=== PATIENT | female | born 1985 | race Caucasian/White ===

== ENCOUNTER 2021-05-28 12:47 | Inpatient (IN) | payer OTHER ==
[2021-05-28 15:13] VITALS: BMI 33.3
[2021-05-28] MEDS ORDERED: IBUPROFEN 400 MG TABLET (FP) PO PRN (17:01)
[2021-05-28] MEDS ORDERED: ACETAMINOPHEN 325 MG TABLET (FP) PO PRN (17:01)
[2021-05-28] MEDS ORDERED: MAG HYDROX/AL HYDROX/SIMETH 30 ML UNIT-DOSE CUP PO PRN (17:01)
[2021-05-28] MEDS ORDERED: MENTHOL/PHENOL 1 EACH UD MM PRN (17:01)
[2021-05-28] MEDS ORDERED: MAGNESIUM CITRATE 300 ML BOTTLE PO PRN (17:01)
[2021-05-28] MEDS ORDERED: guaiFENesin 200 MG/10 ML 10 ML UNIT-DOSE CUPS PO PRN (17:01)
[2021-05-28] MEDS ORDERED: MAGNESIUM HYDROX 2400MG/30ML ORAL SUSPENSION 30 ML CUP PO PRN (17:01)
[2021-05-28] MEDS ORDERED: LOPERAMIDE HCL 2 MG CAPSULE PO PRN (17:01)
[2021-05-28] MEDS ORDERED: P-EPHED 60MG/TRIPROLIDI 2.5MG TABLET PO PRN (17:01)
[2021-05-28] MEDS: THIAMINE HCL 100 MG TABLET (FP) PO SCH (21:47)
[2021-05-28] MEDS: MELATONIN 5 MG TABLETS PO SCH (21:47)
[2021-05-28] MEDS: hydrOXYzine PAMOATE 25 MG CAPSULE (FP) PO PRN (21:48)
[2021-05-28] MEDS: SENNOSIDES 8.6MG TABLET (FP) PO SCH (21:49)
[2021-05-28] MEDS ORDERED: LITHIUM CARBONATE 300 MG CAPSULE PO ONE (22:00)
[2021-05-29] MEDS ORDERED: INSULIN (NOVOLOG) ASPART 100 UNITS/ML 10ML VIAL ONE (07:53)
[2021-05-29] MEDS ORDERED: PT OWN MED DRAWER 7, Y5N ONE ×3 (07:54→20:40)
[2021-05-29] MEDS ORDERED: methaDONE HCL 40 MG DISPERSABLE TABLET PO ONE (10:00)
[2021-05-29] MEDS: ONDANSETRON *ODT* 4 MG TABLET SL PRN (10:49)
[2021-05-29] MEDS: PRENATAL VITAMINS W/ FOLIC ACID TABLET (FP) PO SCH (12:06)
[2021-05-29] MEDS ORDERED: LITHIUM CARBONATE 150 MG CAPSULE PO SCH ×2 (14:00)
[2021-05-29] MEDS: GABAPENTIN 300 MG CAPSULE PO SCH ×2 (14:03→21:26)
[2021-05-29 16:50] LABS: HEMATOCRIT 35.8 % (32.4-45.2); HEMOGLOBIN 11.5 GM/dL (10.7-15.3); MCH 25.3 pg (25.7-33.7); MCHC 32.2 g/dl (32.0-36.0); MEAN CELL VOLUME 78.6 fl (80-96); MEAN PLT VOLUME 9.8 fl (7.5-11.1); PLATELET COUNT 314 10^3/uL (134-434); RBC 4.55 M/mm3 (3.60-5.2); RDW 16.2 % (11.6-15.6); WHITE BLOOD COUNT 12.2 K/mm3 (4.0-10.0)
[2021-05-29 16:51] LABS: CALCIUM 8.5 mg/dL (8.5-10.1)
[2021-05-29 16:52] LABS: ALBUMIN 3.5 g/dl (3.4-5.0); BLOOD UREA NITROGEN 16.2 mg/dL (7-18)
[2021-05-29 16:55] LABS: CREATININE 0.7 mg/dL (0.55-1.3)
[2021-05-29 16:57] LABS: BILIRUBIN,TOTAL 0.5 mg/dL (0.2-1); TOT PROT 7.4 g/dl (6.4-8.2)
[2021-05-29] MEDS: THIAMINE HCL 100 MG TABLET (FP) PO SCH (21:26)
[2021-05-29] MEDS: SENNOSIDES 8.6MG TABLET (FP) PO SCH (21:26)
[2021-05-29] MEDS: LITHIUM CARBONATE 300 MG CAPSULE PO SCH (21:26)
[2021-05-29] MEDS: MELATONIN 5 MG TABLETS PO SCH (21:26)
[2021-05-30] MEDS: methaDONE HCL 40 MG DISPERSABLE TABLET PO SCH (06:19)
[2021-05-30] MEDS: LITHIUM CARBONATE 300 MG CAPSULE PO SCH ×3 (06:19→21:28)
[2021-05-30] MEDS: GABAPENTIN 300 MG CAPSULE PO SCH ×3 (06:21→21:28)
[2021-05-30] MEDS: PRENATAL VITAMINS W/ FOLIC ACID TABLET (FP) PO SCH (10:28)
[2021-05-30] MEDS ORDERED: PT OWN MED DRAWER 7, Y5N ONE ×2 (13:55→20:17)
[2021-05-30] MEDS ORDERED: NICOTINE POLACRILEX 2 MG GUM BUC PRN (19:24)
[2021-05-30] MEDS: NICOTINE 10 MG CARTRIDGE (INHALER) IH SCH (20:05)
[2021-05-30] MEDS: THIAMINE HCL 100 MG TABLET (FP) PO SCH (21:27)
[2021-05-30] MEDS: SENNOSIDES 8.6MG TABLET (FP) PO SCH (21:27)
[2021-05-30] MEDS: MELATONIN 5 MG TABLETS PO SCH (21:28)
[2021-05-30 22:59] LABS: EPI CELLS >36 /uL (0-25.1); HYALINE CASTS 2 /uL (0-3.1); PH,URINE 7.5 (5.0-8.0); URINE APPEARANCE TURBID; URINE BACTERIA 1868 /uL (0-1359); URINE BILIRUBIN NEGATIVE (NEGATIVE); URINE COLOR YELLOW; URINE GLUCOSE (UA) NEGATIVE (NEGATIVE); URINE KETONE NEGATIVE (NEGATIVE); URINE LEUK ESTERASE 3+ (NEGATIVE); URINE NITRITE NEGATIVE (NEGATIVE); URINE PROTEIN 1+ (NEGATIVE); URINE RBC 21 /uL (0-23.9); URINE WBC 1537 /uL (0-25.8)
[2021-05-31] MEDS: LITHIUM CARBONATE 300 MG CAPSULE PO SCH ×3 (06:47→21:40)
[2021-05-31] MEDS: GABAPENTIN 300 MG CAPSULE PO SCH ×3 (06:48→21:40)
[2021-05-31] MEDS: methaDONE HCL 40 MG DISPERSABLE TABLET PO SCH (06:48)
[2021-05-31] MEDS: NICOTINE 10 MG CARTRIDGE (INHALER) IH SCH ×4 (08:43→18:28)
[2021-05-31] MEDS ORDERED: MASKS NR ONE (09:08)
[2021-05-31] MEDS: PRENATAL VITAMINS W/ FOLIC ACID TABLET (FP) PO SCH (10:15)
[2021-05-31] MEDS: SENNOSIDES 8.6MG TABLET (FP) PO SCH (21:40)
[2021-05-31] MEDS: MELATONIN 5 MG TABLETS PO SCH (21:40)
[2021-05-31] MEDS: THIAMINE HCL 100 MG TABLET (FP) PO SCH (21:40)
[2021-06-01] MEDS: methaDONE HCL 40 MG DISPERSABLE TABLET PO SCH (06:22)
[2021-06-01] MEDS: GABAPENTIN 300 MG CAPSULE PO SCH ×3 (06:22→21:35)
[2021-06-01] MEDS: LITHIUM CARBONATE 300 MG CAPSULE PO SCH ×3 (06:24→21:35)
[2021-06-01] MEDS: NICOTINE 10 MG CARTRIDGE (INHALER) IH SCH (11:21)
[2021-06-01] MEDS: PRENATAL VITAMINS W/ FOLIC ACID TABLET (FP) PO SCH (11:21)
[2021-06-01] MEDS ORDERED: PT OWN MED DRAWER 7, Y5N ONE ×2 (13:31→19:46)
[2021-06-01] MEDS: SENNOSIDES 8.6MG TABLET (FP) PO SCH (21:34)
[2021-06-01] MEDS: MELATONIN 5 MG TABLETS PO SCH (21:35)
[2021-06-01] MEDS: THIAMINE HCL 100 MG TABLET (FP) PO SCH (21:35)
[2021-06-02] MEDS: methaDONE HCL 40 MG DISPERSABLE TABLET PO SCH (06:34)
[2021-06-02] MEDS: LITHIUM CARBONATE 300 MG CAPSULE PO SCH ×3 (06:34→21:40)
[2021-06-02] MEDS: GABAPENTIN 300 MG CAPSULE PO SCH ×3 (06:34→21:40)
[2021-06-02] MEDS: NICOTINE 10 MG CARTRIDGE (INHALER) IH SCH (10:31)
[2021-06-02] MEDS: PRENATAL VITAMINS W/ FOLIC ACID TABLET (FP) PO SCH (10:31)
[2021-06-02] MEDS ORDERED: NICOTINE 10 MG CARTRIDGE (INHALER) IH PRN (12:42)
[2021-06-02] MEDS ORDERED: PT OWN MED DRAWER 7, Y5N ONE (15:02)
[2021-06-02] MEDS: MELATONIN 5 MG TABLETS PO SCH (21:41)
[2021-06-02] MEDS: SENNOSIDES 8.6MG TABLET (FP) PO SCH (21:41)
[2021-06-02] MEDS: THIAMINE HCL 100 MG TABLET (FP) PO SCH (21:42)
[2021-06-03] MEDS ORDERED: PT OWN MED DRAWER 7, Y5N ONE ×2 (06:27→13:53)
[2021-06-03] MEDS: LITHIUM CARBONATE 300 MG CAPSULE PO SCH ×3 (06:27→21:41)
[2021-06-03] MEDS: GABAPENTIN 300 MG CAPSULE PO SCH ×3 (06:27→21:41)
[2021-06-03] MEDS: methaDONE HCL 40 MG DISPERSABLE TABLET PO SCH (06:28)
[2021-06-03] MEDS: PRENATAL VITAMINS W/ FOLIC ACID TABLET (FP) PO SCH (10:18)
[2021-06-03] MEDS: NICOTINE 10 MG CARTRIDGE (INHALER) IH PRN ×2 (15:34→19:36)
[2021-06-03] MEDS: MELATONIN 5 MG TABLETS PO SCH (21:39)
[2021-06-03] MEDS: THIAMINE HCL 100 MG TABLET (FP) PO SCH (21:41)
[2021-06-03] MEDS: SENNOSIDES 8.6MG TABLET (FP) PO SCH (21:41)
[2021-06-04] MEDS ORDERED: PT OWN MED DRAWER 7, Y5N ONE ×3 (04:05→22:11)
[2021-06-04] MEDS: methaDONE HCL 40 MG DISPERSABLE TABLET PO SCH (06:31)
[2021-06-04] MEDS: LITHIUM CARBONATE 300 MG CAPSULE PO SCH ×3 (06:31→21:12)
[2021-06-04] MEDS: GABAPENTIN 300 MG CAPSULE PO SCH ×3 (06:31→21:12)
[2021-06-04] MEDS: PRENATAL VITAMINS W/ FOLIC ACID TABLET (FP) PO SCH (10:06)
[2021-06-04] MEDS: NICOTINE 10 MG CARTRIDGE (INHALER) IH PRN ×2 (17:20→21:11)
[2021-06-04] MEDS: MELATONIN 5 MG TABLETS PO SCH (21:11)
[2021-06-04] MEDS: SENNOSIDES 8.6MG TABLET (FP) PO SCH (21:12)
[2021-06-04] MEDS: THIAMINE HCL 100 MG TABLET (FP) PO SCH (21:12)
[2021-06-05] MEDS: LITHIUM CARBONATE 300 MG CAPSULE PO SCH ×3 (06:30→21:12)
[2021-06-05] MEDS: methaDONE HCL 40 MG DISPERSABLE TABLET PO SCH (06:30)
[2021-06-05] MEDS: GABAPENTIN 300 MG CAPSULE PO SCH ×3 (06:30→21:12)
[2021-06-05] MEDS: PRENATAL VITAMINS W/ FOLIC ACID TABLET (FP) PO SCH (10:27)
[2021-06-05] MEDS ORDERED: PT OWN MED DRAWER 7, Y5N ONE ×2 (13:14→19:33)
[2021-06-05] MEDS: NICOTINE 10 MG CARTRIDGE (INHALER) IH PRN ×2 (13:15→21:14)
[2021-06-05] MEDS: SENNOSIDES 8.6MG TABLET (FP) PO SCH (21:12)
[2021-06-05] MEDS: THIAMINE HCL 100 MG TABLET (FP) PO SCH (21:12)
[2021-06-05] MEDS: MELATONIN 5 MG TABLETS PO SCH (21:13)
[2021-06-06] MEDS ORDERED: PT OWN MED DRAWER 7, Y5N ONE ×2 (03:24→20:17)
[2021-06-06] MEDS: methaDONE HCL 40 MG DISPERSABLE TABLET PO SCH (06:51)
[2021-06-06] MEDS: GABAPENTIN 300 MG CAPSULE PO SCH ×3 (06:51→21:18)
[2021-06-06] MEDS: LITHIUM CARBONATE 300 MG CAPSULE PO SCH ×3 (06:52→21:17)
[2021-06-06] MEDS: PRENATAL VITAMINS W/ FOLIC ACID TABLET (FP) PO SCH (10:29)
[2021-06-06] MEDS: NICOTINE 10 MG CARTRIDGE (INHALER) IH PRN ×2 (12:29→18:40)
[2021-06-06] MEDS ORDERED: TETRAHYDROZOLINE HCL EYE DROPS OD SCH (14:00)
[2021-06-06] MEDS: hydrOXYzine PAMOATE 50 MG CAPSULE (FP) PO PRN ×2 (14:10→18:42)
[2021-06-06] MEDS: THIAMINE HCL 100 MG TABLET (FP) PO SCH (21:17)
[2021-06-06] MEDS: MELATONIN 5 MG TABLETS PO SCH (21:17)
[2021-06-06] MEDS: SENNOSIDES 8.6MG TABLET (FP) PO SCH (21:18)
[2021-06-07] MEDS: LITHIUM CARBONATE 300 MG CAPSULE PO SCH ×3 (06:33→21:42)
[2021-06-07] MEDS: GABAPENTIN 300 MG CAPSULE PO SCH ×3 (06:33→21:42)
[2021-06-07] MEDS: methaDONE HCL 40 MG DISPERSABLE TABLET PO SCH (06:33)
[2021-06-07] MEDS: PRENATAL VITAMINS W/ FOLIC ACID TABLET (FP) PO SCH (10:29)
[2021-06-07] MEDS ORDERED: PT OWN MED DRAWER 7, Y5N ONE (13:32)
[2021-06-07] MEDS: NICOTINE 10 MG CARTRIDGE (INHALER) IH PRN ×2 (17:27→21:41)
[2021-06-07] MEDS: hydrOXYzine PAMOATE 25 MG CAPSULE (FP) PO PRN (19:22)
[2021-06-07] MEDS: MELATONIN 5 MG TABLETS PO SCH (21:42)
[2021-06-07] MEDS: THIAMINE HCL 100 MG TABLET (FP) PO SCH (21:42)
[2021-06-07] MEDS: SENNOSIDES 8.6MG TABLET (FP) PO SCH (21:44)
[2021-06-08] MEDS: GABAPENTIN 300 MG CAPSULE PO SCH ×3 (06:37→21:51)
[2021-06-08] MEDS: methaDONE HCL 40 MG DISPERSABLE TABLET PO SCH (06:37)
[2021-06-08] MEDS: LITHIUM CARBONATE 300 MG CAPSULE PO SCH ×3 (06:37→21:51)
[2021-06-08] MEDS: PRENATAL VITAMINS W/ FOLIC ACID TABLET (FP) PO SCH (10:33)
[2021-06-08] MEDS ORDERED: PT OWN MED DRAWER 7, Y5N ONE (14:27)
[2021-06-08] MEDS: NICOTINE 10 MG CARTRIDGE (INHALER) IH PRN ×2 (14:28→21:50)
[2021-06-08] MEDS: SENNOSIDES 8.6MG TABLET (FP) PO SCH (21:51)
[2021-06-08] MEDS: MELATONIN 5 MG TABLETS PO SCH (21:51)
[2021-06-08] MEDS: THIAMINE HCL 100 MG TABLET (FP) PO SCH (21:51)
[2021-06-08] MEDS: hydrOXYzine PAMOATE 50 MG CAPSULE (FP) PO PRN (21:53)
[2021-06-09] MEDS ORDERED: PT OWN MED DRAWER 7, Y5N ONE (02:42)
[2021-06-09] MEDS: methaDONE HCL 40 MG DISPERSABLE TABLET PO SCH (06:50)
[2021-06-09] MEDS: GABAPENTIN 300 MG CAPSULE PO SCH ×3 (06:50→21:49)
[2021-06-09] MEDS: LITHIUM CARBONATE 300 MG CAPSULE PO SCH ×3 (06:50→21:49)
[2021-06-09] MEDS: PRENATAL VITAMINS W/ FOLIC ACID TABLET (FP) PO SCH (10:11)
[2021-06-09] MEDS: hydrOXYzine PAMOATE 50 MG CAPSULE (FP) PO PRN (14:10)
[2021-06-09] MEDS: NICOTINE 10 MG CARTRIDGE (INHALER) IH PRN ×2 (17:10→21:48)
[2021-06-09] MEDS: SENNOSIDES 8.6MG TABLET (FP) PO SCH (21:48)
[2021-06-09] MEDS: THIAMINE HCL 100 MG TABLET (FP) PO SCH (21:49)
[2021-06-09] MEDS: MELATONIN 5 MG TABLETS PO SCH (21:49)
[2021-06-10] MEDS ORDERED: PT OWN MED DRAWER 7, Y5N ONE ×2 (03:08→19:39)
[2021-06-10] MEDS: GABAPENTIN 300 MG CAPSULE PO SCH ×3 (06:23→21:38)
[2021-06-10] MEDS: LITHIUM CARBONATE 300 MG CAPSULE PO SCH ×3 (06:23→21:38)
[2021-06-10] MEDS: methaDONE HCL 40 MG DISPERSABLE TABLET PO SCH (06:23)
[2021-06-10] MEDS: PRENATAL VITAMINS W/ FOLIC ACID TABLET (FP) PO SCH (10:18)
[2021-06-10] MEDS: THIAMINE HCL 100 MG TABLET (FP) PO SCH (21:38)
[2021-06-10] MEDS: SENNOSIDES 8.6MG TABLET (FP) PO SCH (21:38)
[2021-06-10] MEDS: MELATONIN 5 MG TABLETS PO SCH (21:38)
[2021-06-11] MEDS: GABAPENTIN 300 MG CAPSULE PO SCH ×3 (06:26→21:19)
[2021-06-11] MEDS: methaDONE HCL 40 MG DISPERSABLE TABLET PO SCH (06:26)
[2021-06-11] MEDS: LITHIUM CARBONATE 300 MG CAPSULE PO SCH ×3 (06:26→21:19)
[2021-06-11] MEDS: NICOTINE 10 MG CARTRIDGE (INHALER) IH PRN (08:48)
[2021-06-11] MEDS: PRENATAL VITAMINS W/ FOLIC ACID TABLET (FP) PO SCH (10:23)
[2021-06-11] MEDS: SENNOSIDES 8.6MG TABLET (FP) PO SCH (21:19)
[2021-06-11] MEDS: MELATONIN 5 MG TABLETS PO SCH (21:19)
[2021-06-11] MEDS: THIAMINE HCL 100 MG TABLET (FP) PO SCH (21:20)
[2021-06-12] MEDS: GABAPENTIN 300 MG CAPSULE PO SCH ×3 (06:17→21:36)
[2021-06-12] MEDS: LITHIUM CARBONATE 300 MG CAPSULE PO SCH ×3 (06:17→21:36)
[2021-06-12] MEDS: methaDONE HCL 40 MG DISPERSABLE TABLET PO SCH (06:18)
[2021-06-12] MEDS: PRENATAL VITAMINS W/ FOLIC ACID TABLET (FP) PO SCH (10:29)
[2021-06-12] MEDS: MELATONIN 5 MG TABLETS PO SCH (21:36)
[2021-06-12] MEDS: NICOTINE 10 MG CARTRIDGE (INHALER) IH PRN (21:36)
[2021-06-12] MEDS: SENNOSIDES 8.6MG TABLET (FP) PO SCH (21:37)
[2021-06-12] MEDS: THIAMINE HCL 100 MG TABLET (FP) PO SCH (21:37)
[2021-06-13] MEDS: GABAPENTIN 300 MG CAPSULE PO SCH ×3 (06:38→21:37)
[2021-06-13] MEDS: LITHIUM CARBONATE 300 MG CAPSULE PO SCH ×3 (06:38→21:37)
[2021-06-13] MEDS: methaDONE HCL 40 MG DISPERSABLE TABLET PO SCH (06:38)
[2021-06-13] MEDS: PRENATAL VITAMINS W/ FOLIC ACID TABLET (FP) PO SCH (09:50)
[2021-06-13] MEDS: NICOTINE 10 MG CARTRIDGE (INHALER) IH PRN ×2 (09:50→21:37)
[2021-06-13] MEDS ORDERED: PT OWN MED DRAWER 7, Y5N ONE (19:20)
[2021-06-13] MEDS: MELATONIN 5 MG TABLETS PO SCH (21:37)
[2021-06-13] MEDS: SENNOSIDES 8.6MG TABLET (FP) PO SCH (21:37)
[2021-06-13] MEDS: THIAMINE HCL 100 MG TABLET (FP) PO SCH (21:37)
[2021-06-13 21:58] LABS: EPI CELLS >36 /uL (0-25.1); HYALINE CASTS 11 /uL (0-3.1); URINE APPEARANCE CLOUDY; URINE BACTERIA 941 /uL (0-1359); URINE BILIRUBIN NEGATIVE (NEGATIVE); URINE COLOR YELLOW; URINE GLUCOSE (UA) NEGATIVE (NEGATIVE); URINE KETONE NEGATIVE (NEGATIVE); URINE LEUK ESTERASE 3+ (NEGATIVE); URINE NITRITE NEGATIVE (NEGATIVE); URINE PROTEIN 1+ (NEGATIVE); URINE RBC 21 /uL (0-23.9); URINE WBC 847 /uL (0-25.8)
[2021-06-14] MEDS ORDERED: PT OWN MED DRAWER 7, Y5N ONE ×2 (06:28→19:26)
[2021-06-14] MEDS: LITHIUM CARBONATE 300 MG CAPSULE PO SCH ×3 (06:30→21:36)
[2021-06-14] MEDS: GABAPENTIN 300 MG CAPSULE PO SCH ×3 (06:30→21:36)
[2021-06-14] MEDS: methaDONE HCL 40 MG DISPERSABLE TABLET PO SCH (06:31)
[2021-06-14] MEDS: ONDANSETRON *ODT* 4 MG TABLET SL PRN (11:05)
[2021-06-14] MEDS: PRENATAL VITAMINS W/ FOLIC ACID TABLET (FP) PO SCH (11:10)
[2021-06-14] MEDS: hydrOXYzine PAMOATE 50 MG CAPSULE (FP) PO PRN ×2 (14:13→21:36)
[2021-06-14] MEDS: MELATONIN 5 MG TABLETS PO SCH (21:35)
[2021-06-14] MEDS: SENNOSIDES 8.6MG TABLET (FP) PO SCH (21:35)
[2021-06-14] MEDS: THIAMINE HCL 100 MG TABLET (FP) PO SCH (21:35)
[2021-06-15] MEDS ORDERED: PT OWN MED DRAWER 7, Y5N ONE (03:01)
[2021-06-15] MEDS: GABAPENTIN 300 MG CAPSULE PO SCH ×3 (06:30→21:22)
[2021-06-15] MEDS: LITHIUM CARBONATE 300 MG CAPSULE PO SCH ×3 (06:31→21:22)
[2021-06-15] MEDS: methaDONE HCL 40 MG DISPERSABLE TABLET PO SCH (06:31)
[2021-06-15] MEDS: PRENATAL VITAMINS W/ FOLIC ACID TABLET (FP) PO SCH (09:44)
[2021-06-15] MEDS: NICOTINE 10 MG CARTRIDGE (INHALER) IH PRN (09:45)
[2021-06-15] MEDS: MELATONIN 5 MG TABLETS PO SCH (21:21)
[2021-06-15] MEDS: hydrOXYzine PAMOATE 50 MG CAPSULE (FP) PO PRN (21:22)
[2021-06-15] MEDS: THIAMINE HCL 100 MG TABLET (FP) PO SCH (21:22)
[2021-06-15] MEDS: SENNOSIDES 8.6MG TABLET (FP) PO SCH (21:23)
[2021-06-16] MEDS: GABAPENTIN 300 MG CAPSULE PO SCH ×3 (06:41→21:06)
[2021-06-16] MEDS: LITHIUM CARBONATE 300 MG CAPSULE PO SCH ×3 (06:41→21:06)
[2021-06-16] MEDS: methaDONE HCL 40 MG DISPERSABLE TABLET PO SCH (06:41)
[2021-06-16] MEDS: NICOTINE 10 MG CARTRIDGE (INHALER) IH PRN ×2 (10:09→21:08)
[2021-06-16] MEDS: PRENATAL VITAMINS W/ FOLIC ACID TABLET (FP) PO SCH (10:09)
[2021-06-16] MEDS ORDERED: PT OWN MED DRAWER 7, Y5N ONE (13:22)
[2021-06-16] MEDS: SENNOSIDES 8.6MG TABLET (FP) PO SCH (21:05)
[2021-06-16] MEDS: MELATONIN 5 MG TABLETS PO SCH (21:06)
[2021-06-16] MEDS: THIAMINE HCL 100 MG TABLET (FP) PO SCH (21:06)
[2021-06-16] MEDS: hydrOXYzine PAMOATE 50 MG CAPSULE (FP) PO PRN (21:07)
[2021-06-17] MEDS: GABAPENTIN 300 MG CAPSULE PO SCH ×3 (06:44→21:39)
[2021-06-17] MEDS: LITHIUM CARBONATE 300 MG CAPSULE PO SCH ×3 (06:44→21:39)
[2021-06-17] MEDS: methaDONE HCL 40 MG DISPERSABLE TABLET PO SCH (06:44)
[2021-06-17] MEDS: NICOTINE 10 MG CARTRIDGE (INHALER) IH PRN ×2 (08:40→18:24)
[2021-06-17] MEDS: PRENATAL VITAMINS W/ FOLIC ACID TABLET (FP) PO SCH (09:40)
[2021-06-17] MEDS ORDERED: PT OWN MED DRAWER 7, Y5N ONE ×2 (13:10→18:35)
[2021-06-17] MEDS: MELATONIN 5 MG TABLETS PO SCH (21:39)
[2021-06-17] MEDS: SENNOSIDES 8.6MG TABLET (FP) PO SCH (21:39)
[2021-06-17] MEDS: hydrOXYzine PAMOATE 50 MG CAPSULE (FP) PO PRN (21:39)
[2021-06-17] MEDS: THIAMINE HCL 100 MG TABLET (FP) PO SCH (21:39)
[2021-06-18] MEDS ORDERED: PT OWN MED DRAWER 7, Y5N ONE ×3 (06:07→18:59)
[2021-06-18] MEDS: GABAPENTIN 300 MG CAPSULE PO SCH ×3 (06:16→21:02)
[2021-06-18] MEDS: LITHIUM CARBONATE 300 MG CAPSULE PO SCH ×3 (06:16→21:02)
[2021-06-18] MEDS: methaDONE HCL 40 MG DISPERSABLE TABLET PO SCH (06:17)
[2021-06-18] MEDS: PRENATAL VITAMINS W/ FOLIC ACID TABLET (FP) PO SCH (09:41)
[2021-06-18] MEDS: NICOTINE 10 MG CARTRIDGE (INHALER) IH PRN ×2 (09:42→21:02)
[2021-06-18] MEDS: MELATONIN 5 MG TABLETS PO SCH (21:01)
[2021-06-18] MEDS: SENNOSIDES 8.6MG TABLET (FP) PO SCH (21:02)
[2021-06-18] MEDS: THIAMINE HCL 100 MG TABLET (FP) PO SCH (21:02)
[2021-06-19] MEDS: methaDONE HCL 40 MG DISPERSABLE TABLET PO SCH (06:49)
[2021-06-19] MEDS: LITHIUM CARBONATE 300 MG CAPSULE PO SCH ×3 (06:49→22:06)
[2021-06-19] MEDS: GABAPENTIN 300 MG CAPSULE PO SCH ×3 (06:49→22:06)
[2021-06-19] MEDS: PRENATAL VITAMINS W/ FOLIC ACID TABLET (FP) PO SCH (09:52)
[2021-06-19] MEDS: NICOTINE 10 MG CARTRIDGE (INHALER) IH PRN ×2 (09:53→22:06)
[2021-06-19] MEDS ORDERED: PT OWN MED DRAWER 7, Y5N ONE (12:35)
[2021-06-19] MEDS: MELATONIN 5 MG TABLETS PO SCH (22:06)
[2021-06-19] MEDS: SENNOSIDES 8.6MG TABLET (FP) PO SCH (22:06)
[2021-06-19] MEDS: THIAMINE HCL 100 MG TABLET (FP) PO SCH (22:06)
[2021-06-20] MEDS: methaDONE HCL 40 MG DISPERSABLE TABLET PO SCH (06:31)
[2021-06-20] MEDS: LITHIUM CARBONATE 300 MG CAPSULE PO SCH ×3 (06:31→21:29)
[2021-06-20] MEDS: GABAPENTIN 300 MG CAPSULE PO SCH ×3 (06:31→21:29)
[2021-06-20] MEDS: PRENATAL VITAMINS W/ FOLIC ACID TABLET (FP) PO SCH (10:02)
[2021-06-20] MEDS: NICOTINE 10 MG CARTRIDGE (INHALER) IH PRN ×2 (10:02→21:28)
[2021-06-20] MEDS ORDERED: PT OWN MED DRAWER 7, Y5N ONE (20:22)
[2021-06-20] MEDS: SENNOSIDES 8.6MG TABLET (FP) PO SCH (21:29)
[2021-06-20] MEDS: MELATONIN 5 MG TABLETS PO SCH (21:29)
[2021-06-20] MEDS: THIAMINE HCL 100 MG TABLET (FP) PO SCH (21:29)
[2021-06-20] MEDS: hydrOXYzine PAMOATE 50 MG CAPSULE (FP) PO PRN (21:32)
[2021-06-21] MEDS: methaDONE HCL 40 MG DISPERSABLE TABLET PO SCH (06:42)
[2021-06-21] MEDS: GABAPENTIN 300 MG CAPSULE PO SCH ×3 (06:42→21:08)
[2021-06-21] MEDS: LITHIUM CARBONATE 300 MG CAPSULE PO SCH ×3 (06:42→21:07)
[2021-06-21] MEDS: PRENATAL VITAMINS W/ FOLIC ACID TABLET (FP) PO SCH (09:43)
[2021-06-21] MEDS ORDERED: PT OWN MED DRAWER 7, Y5N ONE ×2 (13:22→19:20)
[2021-06-21] MEDS: NICOTINE 10 MG CARTRIDGE (INHALER) IH PRN (17:42)
[2021-06-21] MEDS: THIAMINE HCL 100 MG TABLET (FP) PO SCH (21:07)
[2021-06-21] MEDS: MELATONIN 5 MG TABLETS PO SCH (21:08)
[2021-06-21] MEDS: hydrOXYzine PAMOATE 50 MG CAPSULE (FP) PO PRN (21:08)
[2021-06-21] MEDS: SENNOSIDES 8.6MG TABLET (FP) PO SCH (21:09)
[2021-06-22] MEDS: LITHIUM CARBONATE 300 MG CAPSULE PO SCH ×3 (06:13→21:34)
[2021-06-22] MEDS: GABAPENTIN 300 MG CAPSULE PO SCH ×3 (06:13→21:34)
[2021-06-22] MEDS: methaDONE HCL 40 MG DISPERSABLE TABLET PO SCH (06:13)
[2021-06-22] MEDS: PRENATAL VITAMINS W/ FOLIC ACID TABLET (FP) PO SCH (09:50)
[2021-06-22] MEDS ORDERED: PT OWN MED DRAWER 7, Y5N ONE (13:07)
[2021-06-22] MEDS: NICOTINE 10 MG CARTRIDGE (INHALER) IH PRN (18:16)
[2021-06-22] MEDS: hydrOXYzine PAMOATE 50 MG CAPSULE (FP) PO PRN (21:34)
[2021-06-22] MEDS: THIAMINE HCL 100 MG TABLET (FP) PO SCH (21:34)
[2021-06-22] MEDS: SENNOSIDES 8.6MG TABLET (FP) PO SCH (21:35)
[2021-06-22] MEDS: MELATONIN 5 MG TABLETS PO SCH (21:35)
[2021-06-23] MEDS ORDERED: PT OWN MED DRAWER 7, Y5N ONE ×3 (03:08→20:12)
[2021-06-23] MEDS: LITHIUM CARBONATE 300 MG CAPSULE PO SCH ×3 (06:22→21:14)
[2021-06-23] MEDS: GABAPENTIN 300 MG CAPSULE PO SCH ×3 (06:22→21:14)
[2021-06-23] MEDS: methaDONE HCL 40 MG DISPERSABLE TABLET PO SCH (06:23)
[2021-06-23] MEDS: PRENATAL VITAMINS W/ FOLIC ACID TABLET (FP) PO SCH (09:40)
[2021-06-23] MEDS: NICOTINE 10 MG CARTRIDGE (INHALER) IH PRN ×2 (09:40→21:14)
[2021-06-23] MEDS: THIAMINE HCL 100 MG TABLET (FP) PO SCH (21:14)
[2021-06-23] MEDS: MELATONIN 5 MG TABLETS PO SCH (21:14)
[2021-06-23] MEDS: SENNOSIDES 8.6MG TABLET (FP) PO SCH (21:14)
[2021-06-23] MEDS: hydrOXYzine PAMOATE 50 MG CAPSULE (FP) PO PRN (21:14)
[2021-06-24] MEDS: methaDONE HCL 40 MG DISPERSABLE TABLET PO SCH (06:38)
[2021-06-24] MEDS: GABAPENTIN 300 MG CAPSULE PO SCH (06:38)
[2021-06-24] MEDS ORDERED: PT OWN MED DRAWER 7, Y5N ONE (06:40)
[2021-06-24] MEDS: LITHIUM CARBONATE 300 MG CAPSULE PO SCH (06:40)
[2021-06-24 07:12] VITALS: BP 105/69; PULSE 78; TEMP 97.2
[2021-06-24] MEDS: PRENATAL VITAMINS W/ FOLIC ACID TABLET (FP) PO SCH (09:40)
== END 2021-06-24 09:55 | disposition other institution (70) | DRG 772 ==
LOC: YASAS 12:47 → Y5N 17:30
PROVIDERS: ADMIT Allergy & Immunology; ATTEND Allergy & Immunology
PROC: HZ42ZZZ Group Counseling for Substance Abuse Treatment, Cognitive-Behavioral (ICD-10-PCS; principal; 2021-05-28)
DX: F11.20 Opioid dependence, uncomplicated (principal); F10.20 Alcohol dependence, uncomplicated; F14.20 Cocaine dependence, uncomplicated; F19.280 Other psychoactive substance dependence with psychoactive substance-induced anxiety disorder; F19.282 Other psychoactive substance dependence with psychoactive substance-induced sleep disorder; F19.24 Other psychoactive substance dependence with psychoactive substance-induced mood disorder; G47.00 Insomnia, unspecified; N89.8 Other specified noninflammatory disorders of vagina; R82.90 Unspecified abnormal findings in urine; Z62.810 Personal history of physical and sexual abuse in childhood; Z91.410 Personal history of adult physical and sexual abuse; Z86.59 Personal history of other mental and behavioral disorders; Z56.0 Unemployment, unspecified; Z59.0 Homelessness; Z88.2 Allergy status to sulfonamides; Z91.013 Allergy to seafood
CPT/HCPCS: 36415; 80053; 80178; 81003; 81025; 85027; 86780; 87086; C9803; Q0162; U0003; U0005

== ENCOUNTER 2024-12-24 10:21 | Inpatient (IN) | payer OTHER ==
[2024-12-24 10:54] VITALS: BMI 19.4
[2024-12-24] MEDS ORDERED: MAGNESIUM HYDROX 2400MG/30ML ORAL SUSPENSION 30 ML CUP PO PRN (11:21)
[2024-12-24] MEDS ORDERED: ACETAMINOPHEN 325 MG TABLET (FP) PO PRN (11:21)
[2024-12-24] MEDS ORDERED: ONDANSETRON *ODT* 4 MG TABLET SL PRN (11:21)
[2024-12-24] MEDS ORDERED: P-EPHED 60MG/TRIPROLIDI 2.5MG TABLET PO PRN (11:21)
[2024-12-24] MEDS ORDERED: guaiFENesin 600 MG TABLET.ER (FP) PO PRN (11:21)
[2024-12-24] MEDS ORDERED: DICYCLOMINE HCL 10 MG CAPSULE PO PRN (11:21)
[2024-12-24] MEDS ORDERED: MAG HYDROX/AL HYDROX/SIMETH 30 ML UNIT-DOSE CUP PO PRN (11:21)
[2024-12-24] MEDS ORDERED: IBUPROFEN 400 MG TABLET (FP) PO PRN (11:21)
[2024-12-24] MEDS ORDERED: BENZOCAINE/MENTHOL (CHLORASEPTIC ) LOZENGE MM PRN (11:21)
[2024-12-24] MEDS ORDERED: NALOXONE (NARCAN) HCL 4 MG/0.1 ML SPRAY NS PRN (11:21)
[2024-12-24] MEDS ORDERED: BISMUTH SUBSALICYLATE 524 MG/30 ML PO PRN (11:21)
[2024-12-24] MEDS ORDERED: BENZONATATE 200 MG CAPSULE PO PRN (11:21)
[2024-12-24] MEDS ORDERED: hydrOXYzine PAMOATE 25 MG CAPSULE (FP) PO PRN (11:21)
[2024-12-24] MEDS ORDERED: POLYETHYLENE GLYCOL (HEALTHYLAX) 3350 17 GM PACKET PO PRN (11:21)
[2024-12-24] MEDS: MELATONIN 5 MG TABLETS PO SCH (22:48)
[2024-12-24] MEDS: THIAMINE 100 MG TABLET PO SCH (22:48)
[2024-12-24] MEDS: IBUPROFEN 600 MG TABLET (FP) PO PRN (22:48)
[2024-12-24] MEDS: METHOCARBAMOL 500 MG TABLET PO PRN (22:48)
[2024-12-25] MEDS: AMOX TR/POT CLAV 875MG/125MG TABLETS (FP) PO SCH (08:05)
[2024-12-25] MEDS: PRENATAL VITAMINS W/ FOLIC ACID TABLET (FP) PO SCH (10:33)
[2024-12-25] MEDS: methaDONE HCL 10 MG TABLET PO ONE (10:51)
[2024-12-25] MEDS: diazePAM 5 MG TABLET PO SCH (10:56)
[2024-12-25] MEDS: GABAPENTIN 300 MG CAPSULE PO ONE (11:05)
[2024-12-25 11:31] LABS: HEMATOCRIT 37.4 % (34.1-44.9); HEMOGLOBIN 11.2 g/dL (11.2-15.7); MCHC 29.9 g/dl (32.2-35.5); MEAN CELL VOLUME 80.1 fl (79.4-94.8); MEAN PLT VOLUME 10.8 fl (9.4-12.3); PLATELET COUNT 419 x10^3/uL (182-369)
[2024-12-25 12:02] LABS: POTASSIUM 4.9 mmol/L (3.5-5.1)
[2024-12-25 12:06] LABS: BLOOD UREA NITROGEN 23.7 mg/dL (7-18); CALCIUM 8.5 mg/dL (8.5-10.1)
[2024-12-25 12:07] LABS: ALBUMIN 2.9 g/dl (3.4-5.0)
[2024-12-25 12:10] LABS: CREATININE 0.6 mg/dL (0.55-1.3)
[2024-12-25 12:11] LABS: BILIRUBIN,TOTAL 0.2 mg/dL (0.2-1); TOT PROT 6.2 g/dl (6.4-8.2)
[2024-12-25] MEDS: methaDONE HCL 10 MG TABLET PO PRN (12:25)
[2024-12-25] MEDS: cloNIDine HCL 0.1 MG TABLET PO SCH (13:09)
[2024-12-25] MEDS: GABAPENTIN 300 MG CAPSULE PO SCH (13:09)
[2024-12-25] MEDS: diazePAM 5 MG TABLET PO PRN (20:43)
[2024-12-25] MEDS: MIRTAZAPINE 15 MG TABLET (FP) PO SCH (22:11)
[2024-12-26] MEDS: cloNIDine HCL 0.1 MG TABLET PO PRN (05:50)
[2024-12-26] MEDS: methaDONE 40 MG, methaDONE 10 MG PO ONE (09:55)
[2024-12-27] MEDS: diazePAM 5 MG TABLET PO SCH (05:49)
[2024-12-27] MEDS: methaDONE 40 MG, methaDONE 20 MG PO ONE (09:17)
[2024-12-27] MEDS: LIDOCAINE VISCOUS 2% ORAL/TOP 15 ML UNIT-DOSE CUP MM PRN (11:41)
[2024-12-28] MEDS: diazePAM 5 MG TABLET PO SCH (06:01)
[2024-12-28] MEDS: methaDONE 40 MG, methaDONE 30 MG PO ONE (09:29)
[2024-12-29] MEDS: diazePAM 5 MG TABLET PO ONE (06:04)
[2024-12-29] MEDS: LOPERAMIDE HCL 2 MG CAPSULE PO PRN (09:14)
[2024-12-29] MEDS: methaDONE HCL 40 MG DISPERSABLE TABLET PO ONE (09:14)
[2024-12-29] MEDS: diazePAM 5 MG TABLET PO PRN (10:13)
[2024-12-30] MEDS: methaDONE 80 MG, methaDONE 10 MG PO ONE (09:49)
[2024-12-31] MEDS ORDERED: methaDONE HCL 10 MG TABLET PO ONE (10:00)
[2024-12-31] MEDS: methaDONE 80 MG, methaDONE 20 MG PO ONE (10:00)
[2024-12-31 21:12] VITALS: RESP 16
[2024-12-31] MEDS: diazePAM 5 MG TABLET PO PRN (22:18)
[2025-01-01 06:21] VITALS: BP 123/67; PULSE 84; TEMP 96.9
== END 2025-01-01 06:33 | disposition home or self-care (01) | DRG 773 ==
LOC: YASAS 10:21 → Y6N 12:49
PROVIDERS: ADMIT Neuromusculoskeletal Medicine & OMM; ATTEND Allergy & Immunology
PROC: HZ2ZZZZ Detoxification Services for Substance Abuse Treatment (ICD-10-PCS; principal; 2024-12-24)
DX: F11.23 Opioid dependence with withdrawal (principal); F14.20 Cocaine dependence, uncomplicated; F17.210 Nicotine dependence, cigarettes, uncomplicated; F19.282 Other psychoactive substance dependence with psychoactive substance-induced sleep disorder; F31.9 Bipolar disorder, unspecified; F19.280 Other psychoactive substance dependence with psychoactive substance-induced anxiety disorder; F19.24 Other psychoactive substance dependence with psychoactive substance-induced mood disorder; F43.10 Post-traumatic stress disorder, unspecified; F41.9 Anxiety disorder, unspecified; G47.00 Insomnia, unspecified; K08.89 Other specified disorders of teeth and supporting structures; R63.6 Underweight; Z68.1 Body mass index [BMI] 19.9 or less, adult; Z86.59 Personal history of other mental and behavioral disorders; Z88.2 Allergy status to sulfonamides
CPT/HCPCS: 36415; 80053; 80305; 80307; 81025; 85027; 86593; 86780; 93005; 93010